=== PATIENT | male | born 1990 | race Caucasian/White ===

== ENCOUNTER 2019-03-11 15:12 | Emergency (ER) | payer OTHER ==
[~2019-03-11] VITALS: Ht 167.6 cm; Wt 67.0 kg
[~2019-03-11 15:12] MED LIST: BACTROBAN2 % EX; CEPHALEXIN500 MG OR; NO HOME MEDS
[2019-03-11 16:31] LABS: HEMATOCRIT 39.9 % (39.0-50.0); HEMOGLOBIN 13.9 g/dl (14.0-18.0); IMMATURE GRANULOCYTES 0.5 % (0.0-5.0); MEAN CELL VOLUME 85.6 fL CALC (80.0-100.0); MEAN CORPUSCULAR HGB 29.8 pG CALC (26.0-32.0); MEAN CORPUSCULAR HGB CONC 34.8 g/L CALC (32.0-36.0); NEUT# 3.33 thou/uL (1.82-7.42); RED BLOOD COUNT 4.66 mill/uL (4.70-6.10); RED CELL DISTRI WIDTH 11.9 % (11.5-15.5)
[2019-03-11 16:52] LABS: ANION GAP 14 (6-22 (CALC)); BUN 13 mg/dL (9-20); BUN/CREATININE RATIO 19 (12-20 (CALC)); CARBON DIOXIDE 26 mmol/l (22-30); CHLORIDE 102 mmol/l (95-108); CREATININE 0.7 mg/dL (0.7-1.3); GFR > 60 ML/MIN (>=60 (CALC)); GFR FOR AFR.AMER. > 60 ML/MIN (>=60 (CALC)); POTASSIUM 4.5 mmol/l (3.5-5.1); SODIUM 138 mmol/l (137-146)
[2019-03-11 17:07] VITALS: BP 114/65
== END 2019-03-11 17:58 | disposition home or self-care (01) | DRG 156 ==
LOC: ED 15:12
PROVIDERS: Family Medicine
DX: R07.0 Pain in throat (principal); R09.89 Other specified symptoms and signs involving the circulatory and respiratory systems